=== PATIENT | male | born 1970 | race Caucasian/White ===

== ENCOUNTER 2016-11-08 00:55 | Emergency (ER) | payer MEDICAID ==
[~2016-11-08] VITALS: Ht 182.9 cm; Wt 88.0 kg
[~2016-11-08 00:55] MED LIST: CIPR500T4 PO; LORTA10 PO; TAMS0.4C67 PO
[2016-11-08 00:57] VITALS: BP 144/83; PULSE 79; RESP 18; TEMP 97.9; O2SAT 96
[2016-11-08 04:38] LABS: AUTOMATED NEUTROPHIL # 5.1 TH/MM3 (1.8-7.7); BASOPHIL # 0.1 TH/MM3 (0-0.2); BASOPHIL % 1.3 % (0.0-2.0); EOSINOPHIL # 0.2 TH/MM3 (0-0.4); EOSINOPHIL % 2.8 % (0.0-4.0); HEMATOCRIT 48.3 % (39.0-51.0); LYMPHOCYTE # 1.4 TH/MM3 (1.0-4.8); MEAN CELL VOLUME 91.2 FL (80.0-100.0); MEAN CORPUSCULAR HEMOGLOBIN 30.8 PG (27.0-34.0); MEAN CORPUSCULAR HGB CONC 33.8 % (32.0-36.0); MONO % 9.1 % (0.0-8.0); NEUT % 67.8 % (16.0-70.0); PLATELET COUNT 240 TH/MM3 (150-450); RED CELL DISTRIBUTION WIDTH 15.8 % (11.6-17.2); WHITE BLOOD COUNT 7.5 TH/MM3 (4.0-11.0)
[2016-11-08 04:40] LABS: HEMO FLAGS DIFF FINAL
--- NOTE | 2016-11-08 04:47 | RADRPT ---
EXAM DATE/TIME: 11/08/2016 04:20 [place] COMPARISON: No previous studies available for comparison. INDICATIONS : Shortness of breath MEDICAL HISTORY : None. SURGICAL HISTORY : None. ENCOUNTER: Initial ACUITY: 1 day PAIN SCORE: 7/10 LOCATION: Bilateral chest FINDINGS: A single view of the chest demonstrates the lungs to be symmetrically aerated without evidence of mas s, infiltrate or effusion. The cardiomediastinal contours are unremarkable. Osseous structures are intact. CONCLUSION: Normal examination. Chato Noel MD on November 08, 2016 at 4:46 Board Certified Radiologist. This report was verified electronically.
--- NOTE | 2016-11-08 04:51 | PD ---
HPI Chief Complaint: Bleeding Time Seen by Provider: 04:01 Travel History International Travel<30 days: No Contact w/Intl Traveler<30days: No Traveled to known affect area: No History of Present Illness HPI 46-year-old male presents to the emergency department for complaint of hemoptysis. Patient reports yesterday after awakening from sleep around 3 PM took a shower and coughed up a large dark old bloody mucus. Patient states that he had a typically cleared his throat with some noted irritation. This evening just prior to arrival to the emergency department patient states he started coughing forcefully due to irritation in his throat and coughed up blood that he thought was a large amount. Patient's had no shortness of breath no sweats no dizziness no chest pain or pleuritic pain no recent long distance travel protracted bedrest her surgical procedure note lower extremity lower extremity pain or swelling. Patient does not have any personal history of family history of clotting disorder. Patient is otherwise in good health does not smoke cigarettes occasionally drinks alcohol and is not using substances. [facility] Past Medical History Narrative Medical Kidney stones occasional alcohol use; nursing notes reviewed Medical History: Denies Significant Hx Diminished Hearing: No Kidney Stones: Yes Influenza Vaccination: No Past Surgical History Surgical History: No Previous Surgery Social History Alcohol Use: Yes (SOCIALLY) Tobacco Use: No Substance Use: No Allergies-Medications Reported Meds & Prescriptions Reported Meds & Active Scripts Active Proventil Hfa 6.7 GM Inh (Albuterol Sulfate) 90 Mcg/Act Aer 2 Puff INH Q4-6H PRN Review of Systems Except as stated in HPI: all other systems reviewed are Neg General / Constitutional: No: Fever, Chills, Weight Loss HENT: No: Sore Throat, Congestion, Nosebleed Cardiovascular: No: Chest Pain or Discomfort Respiratory: Positive: Cough, Hemoptysis, No: Shortness of Breath Gastrointestinal: No: Nausea, Vomiting, Abdominal Pain Genitourinary: No: Urgency, Dysuria Musculoskeletal: No: Myalgias, Arthralgias Skin: No Rash Neurologic: No: Weakness Psychiatric: No: Anxiety Hematologic/Lymphatic: No: Lymph Node Enlargement Physical Exam Narrative GENERAL: Well-developed well-nourished male in no acute distress no respiratory distress SKIN: Warm and dry. HEAD: Normocephalic. EYES: No scleral icterus. No injection or drainage. ENT: Mucous members moist airway is patent no redness induration or edema NECK: Supple, trachea midline. No JVD or lymphadenopathy. CARDIOVASCULAR: Regular rate and rhythm without murmurs, gallops, or rubs. RESPIRATORY: Breath sounds equal bilaterally. No accessory muscle use. GASTROINTESTINAL: Abdomen soft, non-tender, nondistended. MUSCULOSKELETAL: No cyanosis, or edema. BACK: Nontender without obvious deformity. No CVA tenderness. Data Data Last Documented VS Vital Signs Date Time Temp Pulse Resp B/P Pulse Ox O2 Delivery O2 Flow Rate FiO2 11/08/16 04:20 16 100 Room Air 11/08/16 00:57 97.9 79 144/83 Orders Complete Blood Count With Diff (11/08/16 04:01) Basic Metabolic Panel (Bmp) (11/08/16 04:01) D-Dimer (11/08/16 04:01) Chest, Single Ap (11/08/16 ) ^ Saline Lock (11/08/16 04:01) Labs Laboratory Tests Test 11/08/16 04:00 White Blood Count 7.5 TH/MM3 Red Blood Count 5.30 MIL/MM3 Hemoglobin 16.3 GM/DL Hematocrit 48.3 % Mean Corpuscular Volume 91.2 FL Mean Corpuscular Hemoglobin 30.8 PG Mean Corpuscular Hemoglobin 33.8 % Concent Red Cell Distribution Width 15.8 % Platelet Count 240 TH/MM3 Mean Platelet Volume 9.0 FL Neutrophils (%) (Auto) 67.8 % Lymphocytes (%) (Auto) 19.0 % Monocytes (%) (Auto) 9.1 % Eosinophils (%) (Auto) 2.8 % Basophils (%) (Auto) 1.3 % Neutrophils # (Auto) 5.1 TH/MM3 Lymphocytes # (Auto) 1.4 TH/MM3 Monocytes # (Auto) 0.7 TH/MM3 Eosinophils # (Auto) 0.2 TH/MM3 Basophils # (Auto) 0.1 TH/MM3 CBC Comment DIFF FINAL Differential Comment D-Dimer Quantitative (PE/DVT) 0.34 MG/L FEU Sodium Level 139 MEQ/L Potassium Level 3.9 MEQ/L Chloride Level 106 MEQ/L Carbon Dioxide Level 27.1 MEQ/L Anion Gap 6 MEQ/L Blood Urea Nitrogen 21 MG/DL Creatinine 0.95 MG/DL Estimat Glomerular Filtration 86 ML/MIN Rate Random Glucose 97 MG/DL Calcium Level 8.6 MG/DL [facility] Medical Decision Making Medical Screen Exam Complete: Yes Emergency Medical Condition: Yes Medical Record Reviewed: Yes Interpretation(s) cxr: FINDINGS: A single view of the chest demonstrates the lungs to be symmetrically aerated without evidence of mass, infiltrate or effusion. The cardiomediastinal contours are unremarkable. Osseous structures are intact. CONCLUSION: Normal examination. Chato Noel MD on November 08, 2016 at 4:46 Board Certified Radiologist. This report was verified electronically. Differential Diagnosis Hemoptysis, bronchiectasis, bronchitis, pneumonia, PE, malignancy, epistaxis Narrative Course IV access obtained specimens collected and sent for resulting; chest x-ray ordered Vital sign stable chest x-ray no lobar infiltrate no effusion no pneumothorax no acute process Advise resulted and found to be in normal range including d-dimer 0.34, not elevated Patient resting comfortably no recurrence of cough or hemoptysis Patient stable for outpatient management and follow-up with primary care provider Diagnosis Primary Impression: Cough with hemoptysis Referrals: [facility] call for appointment Patient Instructions: General Instructions Additional Instructions: Increase fluid hydration No work times one day Take acetaminophen as needed for fever 100.4F or greater Return to the emergency room for pain fever vomiting or recurrent symptoms or any concerns Follow-up with primary care provider or through [facility] Med/Other Pt SpecificInfo: Prescription(s) given Scripts Albuterol 6.7 GM Inh (Proventil Hfa 6.7 GM Inh)90 Mcg/Act Aer2 Puff INH Q4-6H PRN (SHORTNESS OF BREATH) #1 INHALER Ref 0 Prov:Rosa M Sebastian MD 11/08/16 Disposition: 01 DISCHARGE HOME Condition: Stable Rosa M Sebastian MD Nov 08, 2016 04:51
[2016-11-08 05:05] LABS: BICARBONATE 27.1 MEQ/L (21.0-32.0); POTASSIUM 3.9 MEQ/L (3.5-5.1)
[2016-11-08] MEDS ORDERED: ALBU6.7H INH ×2 (05:27→05:31)
[2016-11-08 05:38] VITALS: BP 136/77; TEMP 98.3
== END 2016-11-08 05:39 | disposition home or self-care (01) ==
LOC: NEPC 00:55
DX: R04.2 Hemoptysis (principal)
CPT/HCPCS: 71010; 80048; 85025; 85379; 99284